=== PATIENT | male | born 1975 | race Caucasian/White ===

== ENCOUNTER 2024-04-17 08:32 | Day surgery (SDC) | payer OTHER ==
[2024-04-16 11:33] VITALS: BMI 26.2
[~2024-04-17 08:32] MED LIST: ALPRAZolam 0.5 MG TAB PO PRN
[2024-04-17 09:13] LABS: Glucose,Whole Blood 190 mg/dL (70-110)
[2024-04-17] MEDS: SODIUM CHLORIDE 0.9% 1,000 ML IV ONE (09:16)
[2024-04-17 09:24] LABS: Basophils % (A) 0 %; Eosinophils # (A) 0.1 k/uL (0-0.7); Eosinophils % (A) 2 %; HCT 39.9 % (39.0-53.0); HGB 13.3 gm/dL (13.0-17.5); Lymphocytes # (A) 0.9 k/uL (1.0-4.8); Lymphocytes % (A) 13 %; MCH 28.4 pg (25.0-35.0); MCHC 33.4 g/dL (31.0-37.0); MCV 85.1 fL (80.0-100.0); Mean Platelet Volume 7.9; Monocytes # (A) 0.5 k/uL (0-1.0); Monocytes % (A) 7 %; Neutrophils # (A) 5.3 k/uL (1.3-7.7); Neutrophils % (A) 76 %; Platelet Count 224 k/uL (150-450); RBC 4.69 m/uL (4.30-5.90); RDW 13.8 % (11.5-15.5)
[2024-04-17] MEDS: ASPIRIN 325 MG TAB PO PRN (09:38)
[2024-04-17 09:44] LABS: African American GFR (CKD) >90 (>60 ml/min/1.73 sqM); Anion Gap 11 mmol/L; Blood Urea Nitrogen 17 mg/dL (9-20); Calcium 9.6 mg/dL (8.4-10.2); Carbon Dioxide 22 mmol/L (22-30); Chloride 107 mmol/L (98-107); Glucose 185 mg/dL (74-99); Non-African American GFR(CKD) >90 (>60 ml/min/1.73 sqM); Potassium 4.2 mmol/L (3.5-5.1); Sodium 140 mmol/L (137-145)
[2024-04-17] MEDS: LIDOCAINE 1% INJ 10MG/ML (20 ML MDV) SQ ONE (11:38)
[2024-04-17] MEDS: MIDAZOLAM 2 MG/2 ML VIAL IVP ONE (11:38)
[2024-04-17] MEDS: HEPARIN SODIUM 1,000 UN/ML (10ML VL) IVP ONE ×2 (11:42→12:13)
[2024-04-17] MEDS: HEPARIN SODIUM,PORCINE 10,000 UNIT in SODIUM CHLORIDE 0.9% 1,000 ML IRRIGATION ONE (12:05)
[2024-04-17] MEDS: CLOPIDOGREL 75 MG TAB PO ONE (12:11)
[2024-04-17] MEDS ORDERED: NALOXONE 0.4 MG/ML 1 ML VIAL IVP PRN (12:51)
--- NOTE | 2024-04-17 12:57 | P.PCN ---
Date of Procedure: 04/17/24 Operative Findings: PERCUTANEOUS PERIPHERAL INTERVENTION Performing physician Marko Hancock M.D. Procedure performed 1. Successful balloon angioplasty of the right anterior tibial artery 2. Adjunctive use of atherectomy and IVUS 3. An angiogram of the right anterior tibial artery and left common femoral artery Indication CLI of the right foot Approach Left common femoral artery Complications None Level of sedation Moderate with a sedation time of 55 minutes Procedure description After obtaining informed consent the patient was brought to the cardiac Typewriter Mechanic with the left common femoral artery was cannulated using micropuncture technique under ultrasound guidance a micropuncture wire passed easily and I placed a 6 [place] 70 cm sheath at the left common femoral artery after I exchanged my micropuncture wire into 035 wire using the micropuncture catheter. Subsequently I did go over and over using 5 [place] rim catheter which advanced over 035 wire to the right SFA then the sheath was advanced over the wire and the catheter to the right SFA under fluoroscopy guidance. Subsequently anticoagulation was initiated using heparin with continuous ACT monitoring. I did after that right anterior tibial angiogram which showed the artery has a tight lesion in the proximal portion and it is occluded in the mid portion. I did cross the occlusion using 018 gold tip Glidewire with the backup support of 018 catheter which I could not advance all the way over the wire to the distal right anterior tibial artery and for that reason I pulled the 018 wire and I did exchange that in 2013 wire and then I pulled the 018 catheter and exchanged out in 2013 catheter which I was able to advance to the mid to distal right anterior tibial artery and I injected contrast in the catheter to prove that I was in the true lumen. After that I decided to do an atherectomy of the right anterior tibial a rtery but because the artery is very calcified I did balloon angioplasty using 2.5 coronary balloon after that I was able to advance the atherectomy catheter which was the Hawk 1 catheter to the right anterior tibial artery where I did atherectomy with multiple rounds then I did intravascular ultrasound which showed a diameter around 3 mm and subsequently I did balloon angioplasty using 3 oh by 200 mm balloon which was inflated twice. Final angiogram showed excellent angiographic results. The procedure was completed with no complication. I did exchange my long sheath into short sheath using 035 stiff Glidewire before I did selective left common femoral artery angiogram. The procedure was completed with no complication Postprocedure management 1. Dual antiplatelet therapy 2. Aggressive cholesterol control 3. Risk factors modification 4. Follow-up with the patient
[2024-04-17] MEDS: SODIUM CHLORIDE 0.9% 500 ML 500 ML with niCARdipine 6.25 MG, NITROGLYCERIN-D5W PMX 0.05... IV ONE (16:41)
[2024-04-17] MEDS: SODIUM CHLORIDE 0.9% 1,000 ML in EMPTY BAG 1 BAG IV ONE (16:41)
[2024-04-17] MEDS: SODIUM CHLORIDE 0.9% 1,000 ML in EMPTY BAG 1 BAG IV SCH (16:41)
[2024-04-17 17:29] LABS: Glucose,Whole Blood 149 mg/dL (70-110)
[2024-04-17 19:12] VITALS: RESP 16
[2024-04-17] MEDS: GABAPENTIN 100 MG CAP PO SCH (20:08)
[2024-04-17] MEDS: ATORVASTATIN 80 MG TAB PO SCH (20:08)
[2024-04-17 20:29] LABS: Glucose,Whole Blood 200 mg/dL (70-110)
[2024-04-18 05:50] LABS: Glucose,Whole Blood 157 mg/dL (70-110)
[2024-04-18 07:34] VITALS: BP 148/81; PULSE 84; TEMP 97.9
[2024-04-18 08:15] LABS: African American GFR (CKD) >90 (>60 ml/min/1.73 sqM); Non-African American GFR(CKD) >90 (>60 ml/min/1.73 sqM)
[2024-04-18 09:41] LABS: Glucose,Whole Blood 268 mg/dL (70-110)
[2024-04-18] MEDS: lisinopriL 5 MG TAB PO SCH (09:50)
[2024-04-18] MEDS: CLOPIDOGREL 75 MG TAB PO SCH (09:51)
[2024-04-18] MEDS: buPROPion XL 150 MG TAB.ER.24H PO SCH (09:51)
[2024-04-18] MEDS: ASPIRIN 325 MG TAB PO SCH (09:51)
[2024-04-18] MEDS: INSULIN DETEMIR (LEVEMIR) 100 UNIT/ML SYR SQ SCH (10:14)
--- NOTE | 2024-04-18 10:40 | P.DS ---
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 The left groin is soft and nontender with no bruises. He does have extremely significant Doppler signal in the right anterior tibial artery I was going to discharge the patient on aspirin and Xarelto but unfortunately cannot afford Xarelto and with that being said we are going to discharge the patient on aspirin and Plavix and statin. He will be seen by Dr. Mills as an outpatient Plan - Discharge Summary Discharge Rx Participant: No New Discharge Prescriptions: New Atorvastatin Calcium [Lipitor] 80 mg PO DAILY #90 tablet Aspirin 81 mg PO DAILY #90 tab Rivaroxaban [Xarelto] 2.5 mg PO BID #180 tablet Continue INSULIN LISPRO (humaLOG) [humaLOG] 0 units SQ DIRECTED buPROPion HCL [Wellbutrin XL] 150 mg PO DAILY Doxycycline [Vibramycin] 100 mg PO BID lisinopriL [Zestril] 5 mg PO DAILY Insulin Glargine [Lantus Vial] 30 unit SQ QAM Gabapentin [Neurontin] 100 mg PO BID Discharge Medication List Doxycycline [Vibramycin] 100 mg PO BID 04/16/24 [History] Gabapentin [Neurontin] 100 mg PO BID 04/16/24 [History] INSULIN LISPRO (humaLOG) [humaLOG] 0 units SQ DIRECTED 04/16/24 [History] Insulin Glargine [Lantus Vial] 30 unit SQ QAM 04/16/24 [History] buPROPion HCL [Wellbutrin XL] 150 mg PO DAILY 04/16/24 [History] lisinopriL [Zestril] 5 mg PO DAILY 04/16/24 [History] Aspirin 81 mg PO DAILY #90 tab 04/18/24 [Rx] Atorvastatin Calcium [Lipitor] 80 mg PO DAILY #90 tablet 04/18/24 [Rx] Rivaroxaban [Xarelto] 2.5 mg PO BID #180 tablet 04/18/24 [Rx] Follow up Appointment(s)/Referral(s): Timbo Mills MD [STAFF PHYSICIAN] - 1 Week
--- NOTE | 2024-05-06 22:37 | IR ---
EXAMINATION TYPE: IR job captain tibioperoneal branchs DATE OF EXAM: 04/17/2024 12:54 PM COMPARISON: Pre Operative Images if available both CT/MRI or plain film CLINICAL INDICATION: Male, 48 years old with history of non-healing wound on right foot, 20.2min fluo ro, 6.92Stvd1; TECHNIQUE: IR job captain tibioperoneal branchs, multiple fluoroscopic images provided for procedure. Total fluoroscopy time: 20.2 min Total submitted images to PACS: [id number] DAP: 4.77 mGym2 Gycm2 uGym2 cGycm2 or equivalent. FINDINGS: IMPRESSION: 1. Report was generated for administrative purposes only. 2. Please see the operative/procedural note for further details. [facility], , 05/06/2024 10:35 PM
== END 2024-04-18 11:55 | disposition home or self-care (01) ==
LOC: CATHCVL 08:32 → 6NMEDSUR 12:41 → CATHCVL 04-18 11:55
PROVIDERS: ATTEND Internal Medicine Interventional Cardiology
DX: E11.621 Type 2 diabetes mellitus with foot ulcer (principal); Z79.01 Long term (current) use of anticoagulants; Z79.82 Long term (current) use of aspirin; Z79.899 Other long term (current) drug therapy
CPT/HCPCS: 37229; 80048; 82565; 85025

== ENCOUNTER → 2024-05-20 | Outpatient (CLI) | payer OTHER ==
--- NOTE | 2024-05-20 13:21 | XR ---
EXAMINATION TYPE: XR abdomen 2V DATE OF EXAM: 05/20/2024 COMPARISON: NONE HISTORY: Constipation TECHNIQUE: One view abdominal series FINDINGS: The osseous structures are intact. The bowel gas pattern is nonspecific. Lung bases are clear. Exte nsive retained fecal debris throughout the colon. Arthropathy of the hips. Vascular calcifications in the pelvis. Degenerative changes of the spine. IMPRESSION: 1. Nonspecific abdomen. Large retained stool burden. Correlate for constipation. [facility], , 05/20/2024 1:18 PM
== END | disposition home or self-care (01) ==
LOC: RADXRMAIN 12:56
DX: K59.03 Drug induced constipation (principal)
CPT/HCPCS: 74019